=== PATIENT | male | born 1975 | race African-American/Black ===

== ENCOUNTER 2018-10-28 19:32 | Inpatient (IN) | payer OTHER ==
[~2018-10-28] VITALS: Ht 175.3 cm; Wt 71.0 kg
[2018-10-28 22:17] LABS: Basophils # (auto) 0.1 uL; Basophils % (auto) 1.5 % (0.0-2.0); Eosinophils # (auto) 0.2 uL; Eosinophils % (auto) 5.2 % (0.0-7.0); Hematocrit 45.4 % (41.0-53.0); Hemoglobin 15.6 g/dL (13.5-17.5); Lymphocytes # (auto) 1.8 uL; Lymphocytes % (auto) 48.6 % (10.0-50.0); Mean Corpuscular Hemoglobin 35.1 pg (28.0-32.0); Mean Corpuscular Hgb Conc. 34.4 g/dL (32.0-36.0); Mean Corpuscular Volume 101.8 fL (80.0-100.0); Monocytes # (auto) 0.5 uL; Monocytes % (auto) 13.2 % (0.0-12.0); Neutrophils # (auto) 1.1 uL; Neutrophils % (auto) 31.5 % (37.0-80.0); Nucleated Red Blood Cells % 0.1 %; Platelet Count (auto) 258 10^3/uL (140-450); Red Blood Cells 4.45 10^6/uL (4.5-5.90); Red Cell Distribution Width 13.1 % (11.8-14.3); White Blood Cell 3.6 10^3/uL (4.4-10.8)
[2018-10-28 22:26] LABS: Alanine Aminotransferase 23 U/L (16-61); Albumin 4.2 g/dL (3.4-5.0); Anion Gap 9 (5-15); Calcium 8.4 mg/dL (8.5-10.1); Carbon Dioxide 26 mmol/L (21-32); Chloride 106 mmol/L (98-107); Glucose 99 mg/dL (74-106); Potassium 3.9 mmol/L (3.5-5.1); Sodium 141 mmol/L (136-145)
[2018-10-28 22:30] LABS: Alkaline Phosphatase 73 U/L (45-117); Aspartate Aminotransferase 18 U/L (15-37); BUN/Creatinine Ratio 7.8; Bilirubin, Total 1.2 mg/dL (0.2-1.0); Blood Urea Nitrogen 9 mg/dL (7-18); GFR African American 89 mL/min; GFR Non-African American 74 mL/min; INR 0.97 (0.9-1.15); Partial Thromboplastin Time 24.8 sec (23.64-32.05); Total Protein 8.2 g/dL (6.4-8.2)
[2018-10-28 22:45] LABS: Urine Bacteria FEW /hpf (None Seen); Urine Blood Negative /uL (Negative); Urine Mucus FEW (None Seen); Urine Specific Gravity 1.023 (1.001-1.035); Urine WBC 7 /hpf (0 - 3)
[2018-10-29] MEDS ORDERED: LORazepam 0.5 MG TAB PO ONE (01:00)
[2018-10-29] MEDS ORDERED: SODIUM CHLORIDE 0.9% 1,000 ML IVB ONE (01:06)
[2018-10-29] MEDS ORDERED: PANTOPRAZOLE 40 MG/10 ML VIAL INJ IV ONE (01:15)
[2018-10-29] MEDS ORDERED: ONDANSETRON HCL 4 MG/2 ML VIAL IV ONE ×2 (01:15→03:30)
[2018-10-29 02:14] LABS: Amylase 119 U/L (25-115); Lipase 189 U/L (73-393)
[2018-10-29] MEDS ORDERED: PANTOPRAZOLE 40 MG TAB PO ONE (02:30)
[2018-10-29] MEDS ORDERED: ONDANSETRON HCL 4 MG/2 ML VIAL IV PRN (05:15)
[2018-10-29] MEDS ORDERED: TEMAZEPAM 15 MG CAP PO PRN (05:15)
[2018-10-29] MEDS ORDERED: ACETAMINOPHEN 325 MG TAB PO PRN (05:15)
[2018-10-29] MEDS ORDERED: HYDROcodone-ACET 5/325MG TAB PO PRN (05:15)
[2018-10-29 05:53] LABS: Hemoglobin 14.2 g/dL (13.5-17.5)
[2018-10-29] MEDS ORDERED: PANTOPRAZOLE 40 MG TAB PO SCH (10:00)
--- NOTE | 2018-10-29 10:50 | NUR ---
MED/SURG admit from ER MAGDA SUBRAMANIAN admitted to MED/SURG unit after SBAR received from POTTERY STRIPERFANNY Reyes. Patient oriented to Snehal Rico RN primary RN, unit, room, bed, and unit policies regarding patient care and visiting hours. Patient placed on bedside oxygen, weighed by bedscale and encouraged to call if they need something. All questions and concerns addressed, patient verbalized understanding.
[2018-10-29 11:38] VITALS: BP 115/83
--- NOTE | 2018-10-29 14:00 | NUR ---
MD PEREZ AT BEDSIDE UPDATED MD ON PATIENT'S STATUS, MD IS AWARE. PER MD PATIENT IS SCHEDULED FOR EGD AND COLONOSCOPY TOMORROW
[2018-10-29] MEDS ORDERED: GOLYTELY 4L KIT PO ONE (14:15)
[2018-10-29] MEDS ORDERED: METO5TAB2 PO (16:18)
[2018-10-29 17:07] VITALS: BP 130/86
[2018-10-29] MEDS: D5W/SOD CHL 0.45% 1,000 ML IV SCH (19:30)
--- NOTE | 2018-10-29 19:40 | NUR ---
Opening Shift Note Assumed care of patient, awake and alert x4. No S/S of distress/SOB or pain. Patient connected to fluids as ordered see eMAR. Family is at bedside. Instructed on POC and to call for assist PRN. All questions and concerns answered. Call light is within reach, side rails up x2, bed is in lowest position. Will continue to monitor for changes Q1hr and PRN.
[2018-10-29 21:48] VITALS: BP 118/86
[2018-10-29] MEDS ORDERED: PANTOPRAZOLE 40 MG/10 ML VIAL INJ IV SCH (22:00)
[2018-10-29] MEDS: PANTOPRAZOLE 40 MG TAB PO SCH (22:17)
[2018-10-30 04:47] VITALS: BP 109/77
[2018-10-30] MEDS ORDERED: GOLYTELY 4L KIT PO ONE (06:00)
--- NOTE | 2018-10-30 06:21 | NUR ---
Family called to be updated on patient's status, password was given, all questions and concerns answered.
[2018-10-30 07:07] LABS: Basophils # (auto) 0.1 uL; Basophils % (auto) 2.2 % (0.0-2.0); Eosinophils # (auto) 0.2 uL; Eosinophils % (auto) 5.5 % (0.0-7.0); Hemoglobin 15.4 g/dL (13.5-17.5); Lymphocytes # (auto) 1.6 uL; Lymphocytes % (auto) 47.3 % (10.0-50.0); Mean Corpuscular Hemoglobin 35.5 pg (28.0-32.0); Mean Corpuscular Hgb Conc. 34.3 g/dL (32.0-36.0); Mean Corpuscular Volume 103.4 fL (80.0-100.0); Monocytes # (auto) 0.4 uL; Monocytes % (auto) 12.5 % (0.0-12.0); Neutrophils # (auto) 1.1 uL; Neutrophils % (auto) 32.5 % (37.0-80.0); Nucleated Red Blood Cells % 0.5 %; Platelet Count (auto) 231 10^3/uL (140-450); Red Blood Cells 4.35 10^6/uL (4.5-5.90); Red Cell Distribution Width 13.2 % (11.8-14.3); White Blood Cell 3.3 10^3/uL (4.4-10.8)
[2018-10-30 07:34] LABS: BUN/Creatinine Ratio 6.1; Potassium 3.6 mmol/L (3.5-5.1)
[2018-10-30] MEDS: D5W/SOD CHL 0.45% 1,000 ML IV SCH ×2 (07:50→16:51)
[2018-10-30] MEDS: PANTOPRAZOLE 40 MG TAB PO SCH ×2 (07:51→22:02)
--- NOTE | 2018-10-30 07:57 | NUR ---
Opening Shift Note Assumed care of patient, awake and alert. No S/S of distress/SOB or pain. Instructed on POC and to call for assist PRN, will continue to monitor for changes Q1hr and PRN.
[2018-10-30 08:00] VITALS: BP 119/76
[2018-10-30] MEDS ORDERED: SODIUM CHLORIDE LOCK 10 ML ONE (10:45)
[2018-10-30] MEDS ORDERED: LIDOCAINE VISCOUS 2% 15ML UD ONE (10:45)
[2018-10-30] MEDS ORDERED: FLUMAZENIL 0.1 MG/ML INJ 10ML MDV IV ONE (10:45)
[2018-10-30] MEDS ORDERED: NALOXONE HCL 0.4 MG/ML VIAL ONE (10:45)
[2018-10-30] MEDS ORDERED: diphenhdrAMINE HCL 50 MG/1 ML VL ONE (10:46)
[2018-10-30] MEDS: MIDAZOLAM HCL 5 MG/ML-1ML VIAL ONE ×3 (11:25→11:39)
[2018-10-30] MEDS: fentaNYL CITRATE 100 MCG/2 ML VL ONE ×3 (11:25→11:39)
--- NOTE | 2018-10-30 13:00 | NUR ---
patient back from procedure asleep in bed resting verbally arousable no c/o pain or discomfort
--- NOTE | 2018-10-30 13:52 | NUR ---
pt out for HIDA SCAN
--- NOTE | 2018-10-30 15:45 | NUR ---
pt back from hida scan no c/o pain or discomfort, pt has the hiccups pt stated "this is how it normally goes i will have the hiccups, ill eat then throw up and they are gone"
[2018-10-30] MEDS ORDERED: PANT40T PO (16:12)
--- NOTE | 2018-10-30 16:26 | NUR ---
MD Jeffery at bedside put in discharge orders for pt if tolerating regular diet with no emesis epsiode. upon furhter interviewing pt, he will stay tonight possible discharge tomorrow
[2018-10-30] MEDS ORDERED: METOCLOPRAMIDE HCL 5MG/ml INJ 2ml VIAL IV ONE (16:30)
[2018-10-30 17:00] VITALS: BP 116/64
--- NOTE | 2018-10-30 18:31 | NUR ---
pt still has chronic persistent hiccups after given reglan IV.
--- NOTE | 2018-10-30 19:25 | NUR ---
Opening Shift Note Assumed care of patient, awake and alert x4. No S/S of distress/SOB or pain. Family is at bedside. Instructed on POC and to call for assist PRN. All questions and concerns answered, will continue to monitor for changes Q1hr and PRN.
--- NOTE | 2018-10-30 20:00 | NUR ---
Patient stated he did not receive a tray for dinner and stated he was hungry. Zhanna provided, instructed patient to call if he felt nauseous.
--- NOTE | 2018-10-30 20:26 | NUR ---
Diet tolerated for dinner Patient tolerated half a sandwich and jello for dinner, no complaints of nausea or hiccups.
[2018-10-30 22:00] VITALS: BP 104/74
[2018-10-31 05:23] VITALS: BP 96/52
[2018-10-31] MEDS: D5W/SOD CHL 0.45% 1,000 ML IV SCH (06:25)
[2018-10-31] MEDS: METOCLOPRAMIDE HCL 10 MG TAB PO SCH ×2 (06:25→11:37)
[2018-10-31 08:00] VITALS: BP 109/60
--- NOTE | 2018-10-31 11:25 | NUR ---
AT BEDSIDE DR EASTON AT BEDSIDE NEW ORDERS TO DISCHARGE. WILL CARRY OUT GIVEN.
[2018-10-31 13:00] VITALS: BP 114/66
--- NOTE | 2018-10-31 15:05 | NUR ---
DISCHARGED PATIENT DISCHARGED HOME VIA AMBULATED TO PRIVATE FAMILY VEHICLE AFTER ALL DISCHARGE INSTRUCTIONS GIVEN AND ALL QUESTIONS AND CONCERNS ADDRESSED. PATIENT INFORMED TO CONTACT PCP FOR FOLLOW UP WITHIN 1-2 WEEKS AND TO FOLLOW UP WITH GI MD IN 3-4 WEEKS. PATIENT VERBALIZED UNDERSTANDING. IV WAS REMOVED USING CLEAN STERILE TECHNIQUE, PRESSURE DRESSING APPLIED, CATHETER WAS INTACT UPON REMOVAL. PATIENT SHOWED NO S/S OF DISTRESS OR SOB NOTED UPON DISCHARGE.
== END 2018-10-31 15:05 | disposition home or self-care (01) | DRG 241 ==
LOC: ER 19:38 → OVERFLOW 19:39 → CENTRAL 10-29 10:54
PROVIDERS: ADMIT Nurse Practitioner; ATTEND Internal Medicine Nephrology
PROC: 0DB68ZX Excision of Stomach, Via Natural or Artificial Opening Endoscopic, Diagnostic (ICD-10-PCS; principal; 2018-10-30 11:20)
PROC: 0DJD8ZZ Inspection of Lower Intestinal Tract, Via Natural or Artificial Opening Endoscopic (ICD-10-PCS; 2018-10-30 11:20)
DX: K29.61 Other gastritis with bleeding (principal); K21.0 Gastro-esophageal reflux disease with esophagitis; K44.9 Diaphragmatic hernia without obstruction or gangrene; Z79.899 Other long term (current) drug therapy
CPT/HCPCS: 36415; 43239; 45378; 74176; 76705; 78226; 80048; 80053; 81001; 82150; 83690; 85014; 85018; 85025; 85610; 85730; 86850; 86900; 86901; 93005; 94761; 96361; 96374; 96375; G0378; J2250; J2405